=== PATIENT | female | born 1975 | race Hispanic/Latino ===

== ENCOUNTER 2016-08-10 06:14 | Day surgery (SDC) | payer OTHER ==
[2016-08-10 06:19] VITALS: BMI 34.2
[2016-08-10 06:36] VITALS: RESP 20
[2016-08-10] MEDS ORDERED: ePHEDrine 50 mg/ml Inj ONE ×2 (06:57→08:58)
[2016-08-10] MEDS ORDERED: Propofol 10 mg/ml Inj (20 ML) ONE (06:57)
[2016-08-10] MEDS ORDERED: Lidocaine 4% (Laryng-O-Jet) Kit MM ONE (06:58)
[2016-08-10] MEDS ORDERED: Rocuronium 10 mg/ml (5 ml) ONE (06:58)
[2016-08-10] MEDS ORDERED: Neostigmine Methylsulfate 3mg/3ml Syringe IV ONE (06:58)
[2016-08-10] MEDS ORDERED: Lactated Ringer's 1,000 ML IV ONE ×3 (06:58→13:47)
[2016-08-10] MEDS ORDERED: Succinylcholine 200 mg/10 ml Inj IV ONE (06:58)
[2016-08-10] MEDS ORDERED: Neostigmine Methylsulfate 2 MG/2 ML ML IV ONE (06:58)
[2016-08-10] MEDS ORDERED: Midazolam 2 MG/2 ML VIAL ONE (06:58)
[2016-08-10] MEDS ORDERED: Dexamethasone 4 mg/1 ml ONE (07:05)
[2016-08-10] MEDS ORDERED: Bupivacaine 0.5% Inj(30mL) ONE (07:18)
[2016-08-10 07:25] LABS: HEMATOCRIT 38.8 % (34.0-47.0); MEAN CELL VOLUME 82.9 fl (81.0-99.0); MEAN CORPUSCULAR HEMOGLOBIN 27.6 pg (27.0-31.0); MEAN CORPUSCULAR HGB CONC 33.3 g/dL (33.0-37.0); RED CELL DISTRIBUTION WIDTH 14.2 % (11.5-14.5)
[2016-08-10] MEDS ORDERED: Phenylephrine 10 mg/ml Inj ONE (07:31)
[2016-08-10] MEDS ORDERED: Clindamycin 300 mg/2 ml Inj IVPB ONE (08:45)
[2016-08-10] MEDS ORDERED: Bupivacaine 0.5% 50 ML IJ ONE (09:19)
[2016-08-10] MEDS ORDERED: Lactated Ringer's 1,000 ML IV SCH (10:45)
[2016-08-10] MEDS: HYDROmorphone 0.5 mg/0.5 ml ISec IVP PRN ×3 (10:56→11:14)
[2016-08-10] MEDS ORDERED: Oxycodone/Acetaminophen 5/325 mg Tab PO PRN (10:57)
--- NOTE | 2016-08-10 14:23 | CP.PCM.DIS ---
Provider - Provider Attending physician: Haris Campuzano Primary care physician: Haris Campuzano Time Spent in preparation of Discharge (in minutes): 15 Hospital Course - Lab Results Lab Results: Most Recent Lab Values WBC 7.0 K/uL (4.8-10.8) 08/10/16 06:40 RBC 4.68 Mil/uL (3.80-5.20) 08/10/16 06:40 Hgb 12.9 g/dL (12.0-16.0) 08/10/16 06:40 Hct 38.8 % (34.0-47.0) 08/10/16 06:40 MCV 82.9 fl (81.0-99.0) 08/10/16 06:40 MCH 27.6 pg (27.0-31.0) 08/10/16 06:40 MCHC 33.3 g/dL (33.0-37.0) 08/10/16 06:40 RDW 14.2 % (11.5-14.5) 08/10/16 06:40 Plt Count 237 K/uL (130-400) 08/10/16 06:40 Blood Type O POSITIVE 08/10/16 06:40 Blood Type Confirm O POSITIVE 08/10/16 08:59 Antibody Screen Negative 08/10/16 06:40 BBK History Checked No verified bt 08/10/16 06:40 Discharge Plan - Discharge Medications Prescriptions: oxyCODONE/Acetaminophen [Percocet 5/325 mg Tab] 2 tab PO Q6 PRN #20 tab PRN Reason: Pain, Moderate (4-7) - Follow Up Plan Condition: GOOD Disposition: HOME/ ROUTINE Referrals: Haris Campuzano [Primary Care Provider] -
[2016-08-10 15:23] VITALS: BP 114/60; PULSE 74; TEMP 97.8; O2SAT 97
--- NOTE | 2016-08-12 15:46 | OP ---
PROCEDURE DATE: 08/10/2016 SURGEON: Trey Main MD. TRAINING AND DEVELOPMENT REP: Dr. Haris Campuzano. PROCEDURE PERFORMED: Robotic excision of perirectal endometriosis. PREOPERATIVE DIAGNOSES: Abdominal pain and endometriosis. POSTOPERATIVE DIAGNOSES: Abdominal pain and endometriosis. ANESTHESIA: General. ANESTHESIOLOGIST: Dr. Wagoner. ESTIMATED BLOOD LOSS: Zero mL. SPECIMEN SENT: Perirectal wall endometriosis. BRIEF HISTORY: This is a 41-year-old woman who was previously admitted by Dr. Haris Campuzano for abdo hakan pain and endometriosis. During the course of his robotic exploration he discovered that there was a perirectal lesion for which he asked for an intraoperative consult. DESCRIPTION OF PROCEDURE: The patient had already been brought to the operating room by Dr. Haris Campuzano who had initiated the robotic procedure (separate dictation Dr. Haris Campuzano). Once in the o perating room, I took over the robotic console and after identifying the lesion in the rectum just ab ove the peritoneal reflection, I used blunt and sharp dissection with the aid of electrocautery to ex cise the lesion circumferentially. During the course of the dissection, careful attention was paid t o hemostasis using electrocautery. Once the lesion was completely packaging mechanic off the rectal wall, it was appropriately marked and sent to pathology as a separate specimen. The area in question was examine d and hemostasis was deemed adequate at this point. The operation was then turned over to Dr. Haris Campuzano (separate dictation, Dr. Campuzano). Trey Main MD cc: [id number] TT: 08/12/2016 15:45:54 jn
--- NOTE | 2016-09-05 08:37 | OP ---
PROCEDURE DATE: 08/10/2016 SURGEON: Haris Campuzano M.D. FISH AND GAME WARDEN: Dr. Trey Main, from general surgery. ANESTHESIA: General endotracheal. ESTIMATED BLOOD LOSS: Minimal. COMPLICATIONS: None. PROCEDURE PERFORMED: Hysteroscopy, D and C, polypectomy, cystoscopy, bilateral ureteral stenting, injection of dye, robotic excision of endometriosis, bilateral ureterolysis and excision of perirectal masses containing endometriosis. DESCRIPTION OF PROCEDURE: After adequate anesthesia was obtained, the patient was placed in dorsal lithotomy position. She was prepped and draped, the surgeon gowned and gloved. At this point, attention was in the vaginal area where a cystoscope was inserted into the bladder. The bladder was visualized and 2 stents were used to cannulate both ureters with a 5-[place] open-ended stent. Both ureters were cannulized and 0.5 mL of IC-Green were injected into each ureter. At this point, attention was on the vaginal area where a speculum was placed in the vagina. Anterior lip of the cervix was catheterized. The cervix was gently dilated and a cystoscope was inserted into the bladder. A polyp was visualized and it was excised and sent to pathology. At this point, the uterine manipulator was inserted into the uterine cavity and then attention was on the pelvis. An open laparoscopy technique was used for the placement of the first trocar, three additional trocars were inserted under direct visualization and the da sumaya robot was docked. The instruments were then inserted under direct visualization. The pelvis had multiple areas of both red and black dot-type endometriosis present. There were lesions both on the left pelvic sidewall and the iliac vessels, on the right pelvic sidewall, on the left perirectal area and in the posterior cul-de-sac. The first area that was addressed was the left ovarian fossa, where an area of endometriosis was identified. The peritoneum was lifted and dissected off its underlying tissue and progressively dissected off with an area of endometriosis. On the right hand side after identifying the ureter, an incision was made in the retroperitoneum. Retroperitoneal cavity was entered. The ureter was lateralized and dissected and a progressive dissection was performed all the way from the top all the way down to the uterosacral ligament and an area of peritoneum containing endometriosis was excised. There was also an area suspicious of endometriosis in the right uterosacral ligament, which was also excised. There was also a lesion on top of the right iliac vein, which the peritoneum on top of the iliac vein was lifted up and the area was progressively dissected off and excised and sent to pathology. This was done very gently without damaging the vessel. On the left hand side, there was an additional area of endometriosis which was also biopsied by dissecting off the peritoneum off the left ureter and excising an area of peritoneum sent to pathology. Two areas of endometriosis in the perirectal area were dissected with Dr. Main and dictated separately due proximity to the bowel. At this point, it was checked for hemostasis that appeared to be excellent. The da Sumaya robot was undocked. The instruments were removed and the abdomen was desufflated and the fascial layer was reapproximated with 0 PDS and the skin lesions were reapproximated with 4-0 Monocryl. At the end of the procedure, all tapes and instrument counts were correct. The patient tolerated the procedure well and was taken to recovery room in excellent condition. Haris Campuzano MD cc: [id number] TT: 09/05/2016 08:36:59 dae [email or web address]
== END 2016-08-10 15:30 | disposition home or self-care (01) ==
LOC: H.OPSURG 06:14
PROVIDERS: ATTEND Obstetrics & Gynecology Reproductive Endocrinology
DX: N80.0 Endometriosis of uterus (principal); E03.9 Hypothyroidism, unspecified; E66.9 Obesity, unspecified; N84.0 Polyp of corpus uteri; N80.1 Endometriosis of ovary; N80.3 Endometriosis of pelvic peritoneum; N80.8 Other endometriosis